=== PATIENT | male | born 2000 | race Caucasian/White ===

== ENCOUNTER 2021-06-09 02:45 | Emergency (ER) | payer SELFPAY ==
[~2021-06-09] VITALS: Ht 172.7 cm; Wt 72.6 kg
[2021-06-09 02:46] VITALS: BP 105/86
[2021-06-09] MEDS ORDERED: ONDANSETRON 4 MG TAB.RAPDIS ONE (02:55)
[2021-06-09] MEDS ORDERED: ONDANSETRON 4 MG TAB.RAPDIS SL ONE (03:00)
== END 2021-06-09 03:20 | disposition home or self-care (01) ==
LOC: ER 02:48
DX: F10.129 Alcohol abuse with intoxication, unspecified (principal); R11.10 Vomiting, unspecified; Y90.9 Presence of alcohol in blood, level not specified
CPT/HCPCS: 99283; Q0162